=== PATIENT | female | born 1985 | race African-American/Black ===

== ENCOUNTER 2021-12-30 20:02 | Emergency (ER) | payer OTHER, SELFPAY ==
[2021-12-30 20:20] VITALS: BP 131/86; PULSE 79; RESP 14; TEMP 36.9; O2SAT 100
[2021-12-30 21:56] LABS: Appearance Urine Clear (Clear); Bilirubin Urine Negative (Negative); Blood Urine Negative (Negative); Color Urine Yellow (Yellow); Glucose Urine UA Negative (Negative); Ketones Urine Negative (Negative); Leukocyte Esterase Ur Negative LEU/UL (Negative); Nitrate Urine Negative (Negative); Protein Urine Negative (Negative); Specific Grav Ur 1.025 (1.001-1.035); Urobilinogen Urine 0.2 mg/dL (<2.0)
[2021-12-30 21:59] LABS: Mucus Urine Few /lpf; RBC Urine 0-2 /hpf (0-2); Squamous Epithelial Cell Urine Rare /hpf (Few); WBC Urine 0-3 /hpf
[2021-12-30 22:03] LABS: Add Urine Microscopic? NO
--- NOTE | 2021-12-30 22:15 | ED.GENADULT ---
HPI - General Adult General Chief complaint: Back Pain/Injury Stated complaint: lower back pain Time Seen by Provider: 12/30/21 20:50 History of Present Illness HPI narrative: 36-year-old female presenting to the emergency department for evaluation of lower back pain that started yesterday. Patient denies any specific incident of injury. Patient denies any falls. Patient states she is having bilateral lower back pain. Patient states pain is worsened with movement. Patient denies any associated numbness or weakness. Patient denies any pain with urination. Patient has no prior history of lower back surgeries. Related Data Allergies Allergy/AdvReac Type Severity Reaction Status Date / Time No Known Allergies Allergy Verified 12/30/21 21:28 Review of Systems Review of Systems: CONSTITUTIONAL: Denies fever, chills, or sweats. EYES: Denies visual changes, redness, or discharge. ENT: Denies rhinorrhea, congestion, sore throat, or otalgia. CARDIOVASCULAR: Denies chest pain, palpitations, or edema. RESPIRATORY: Denies cough or dyspnea. GASTROINTESTINAL: Denies abdominal pain, nausea, vomiting, or diarrhea. GENITOURINARY: Denies dysuria or hematuria. SKIN: Denies rash or itching. MUSCULOSKELETAL: Lower back pain worsened with movement. NEUROLOGIC: Denies headache, numbness, or weakness. PSYCHIATRIC: Denies anxiety or depression. Exam Narrative: APPEARANCE: Well appearing, no pain, no distress, well-nourished. HEAD: normocephalic, atraumatic. EYES: PERRLA/EOMI, conjunctivae clear. NECK: Supple. No adenopathy, no masses. RESPIRATORY: Airway patent, respirations nonlabored. Clear to auscultation bilaterally, no rales, rhonchi, wheezing. CARDIOVASCULAR: Regular rate and rhythm without murmurs rubs or gallops. ABDOMINAL: Soft, nontender, nondistended, normal bowel sounds MUSCULOSKELETAL: Residual low back pain with movement and with palpation. No midline step-offs or deformities. NEURO: Alert. Cranial nerves II through XII intact. Grossly intact SKIN: Warm, dry. Normal Color PSYCHIATRIC: Normal affect/mood. Course Course Emergency Course: Patient was updated on the results of her exam and plan for treatment. Patient was educated on reasons to return to the emergency department. All question concerns were addressed. Suspect muscular injury to her lower back. Vital Signs Vital signs: Vital Signs Temperature 98.4 F 12/30/21 20:20 Pulse Rate 79 12/30/21 20:20 Respiratory Rate 14 12/30/21 20:20 Blood Pressure 131/86 12/30/21 20:20 Pulse Oximetry 100 12/30/21 20:20 Oxygen Delivery Room Air 12/30/21 20:20 Temperature 98.4 F 12/30/21 20:20 Pulse Rate 66 12/30/21 22:37 Respiratory Rate 17 12/30/21 22:37 Blood Pressure 118/82 12/30/21 22:37 Pulse Oximetry 99 12/30/21 22:37 Oxygen Delivery Room Air 12/30/21 20:20 Medical Decision Making Vital Signs Vital Signs: Vital Signs Temperature 98.4 F 12/30/21 20:20 Pulse Rate 79 12/30/21 20:20 Respiratory Rate 14 12/30/21 20:20 Blood Pressure 131/86 12/30/21 20:20 Pulse Oximetry 100 12/30/21 20:20 Oxygen Delivery Room Air 12/30/21 20:20 Temperature 98.4 F 12/30/21 20:20 Pulse Rate 66 12/30/21 22:37 Respiratory Rate 17 12/30/21 22:37 Blood Pressure 118/82 12/30/21 22:37 Pulse Oximetry 99 12/30/21 22:37 Oxygen Delivery Room Air 12/30/21 20:20 Lab Data Labs: Lab Results 12/30/21 Range/Units 21:48 Urine Color Yellow (Yellow) Urine Appearance Clear (Clear) Urine pH 6.0 (5.0-9.0) Ur Specific [place] 1.025 (1.001-1.035) Urine Protein Negative (Negative) mg/dL Urine Glucose (UA) Negative (Negative) mg/dL Urine Ketones Negative (Negative) mg/dL Ur Blood (Man) Negative (Negative) Urine Nitrate Negative (Negative) Urine Bilirubin Negative (Negative) Urine Urobilinogen 0.2 (<2.0) mg/dL Leukocyte Esterase Rfl Negative (Negative) SAMANTHA/UL Urine RBC 0-2
[2021-12-30] MEDS: KETOROLAC 30 MG/ML VIAL (*BKC) IM (22:20)
[2021-12-30] MEDS: CYCLOBENZAPRINE HCL 10 MG TABLET PO (22:21)
[2021-12-30] MEDS: HYDROcodone/acetaminophen (*CRX) 5-325 MG TABLET 1 TAB PO (22:21)
[2021-12-30 22:37] VITALS: BP 118/82; PULSE 66; RESP 17; O2SAT 99
== END 2021-12-30 22:38 | disposition home or self-care (01) ==
PROVIDERS: Emergency Provider Emergency Medicine
DX: M54.50 Low back pain, unspecified (principal)
CPT/HCPCS: 81003; 81025; 96372; 99283; A9270; J1885

== ENCOUNTER 2022-02-21 01:23 | Emergency (ER) | payer OTHER, SELFPAY ==
[2022-02-21 01:32] VITALS: BP 137/80; PULSE 91; RESP 18; TEMP 37.4; O2SAT 98
--- NOTE | 2022-02-21 02:16 | ED.GENADULT ---
HPI - General Adult General Chief complaint: Upper Respiratory Infection Stated complaint: sore throat Time Seen by Provider: 02/21/22 01:55 Source: patient Mode of arrival: ambulatory Limitations: no limitations History of Present Illness HPI narrative: Presents complaints of sore throat, nasal congestion and generally not feeling well x1 hour prior to arrival. States awoke with symptoms so came to the ER for evaluation. Has not taken any medications for symptoms and unsure if has fever or not. Denies chills. Related Data Allergies Allergy/AdvReac Type Severity Reaction Status Date / Time No Known Allergies Allergy Verified 02/21/22 01:24 Review of Systems Review of Systems: CONSTITUTIONAL: Possible fever but unsure. Generalized aches. EYES: Denies visual changes, redness, or discharge. ENT: Sore throat, nasal congestion. CARDIOVASCULAR: Denies chest pain, palpitations, or edema. RESPIRATORY: Denies cough or dyspnea. GASTROINTESTINAL: Denies abdominal pain, nausea, vomiting, or diarrhea. GENITOURINARY: Denies dysuria or hematuria. SKIN: Denies rash or itching. MUSCULOSKELETAL: Denies back pain, joint pain, or myalgia. NEUROLOGIC: Denies headache, numbness, or weakness. PSYCHIATRIC: Denies anxiety or depression. Exam Narrative: GENERAL: Well-appearing, well-nourished, and in no acute distress. Appears to not feel well. HEAD: Normocephalic, atraumatic. EYES: PERRLA and EOMI. ENT: Clear nasal discharge. Mucous membranes moist. Mild posterior oropharynx erythema but no exudate. NECK: Supple. CHEST: Clear to auscultation. No respiratory distress. HEART: Regular rate and rhythm. No murmur heard. Normal peripheral pulses. ABDOMEN: Soft, nontender, nondistended, normal active bowel sounds. EXTREMITIES: Normal range of motion. No edema. SKIN: Warm, dry, no rash. NEURO: No focal deficits. Alert and oriented x3. PSYCH: Normal mood and affect. Course Vital Signs Vital signs: Vital Signs Temperature 37.4 C 02/21/22 01:32 Pulse Rate 91 02/21/22 01:32 Respiratory Rate 18 02/21/22 01:32 Blood Pressure 137/80 02/21/22 01:32 Pulse Oximetry 98 02/21/22 01:32 Oxygen Delivery Room Air 02/21/22 01:32 Temperature 37.4 C 02/21/22 01:32 Pulse Rate 91 02/21/22 01:32 Respiratory Rate 18 02/21/22 01:32 Blood Pressure 137/80 02/21/22 01:32 Pulse Oximetry 98 02/21/22 01:32 Oxygen Delivery Room Air 02/21/22 01:32 Medical Decision Making Vital Signs Vital Signs: Vital Signs Temperature 37.4 C 02/21/22 01:32 Pulse Rate 91 02/21/22 01:32 Respiratory Rate 18 02/21/22 01:32 Blood Pressure 137/80 02/21/22 01:32 Pulse Oximetry 98 02/21/22 01:32 Oxygen Delivery Room Air 02/21/22 01:32 Temperature 37.4 C 02/21/22 01:32 Pulse Rate 91 02/21/22 01:32 Respiratory Rate 18 02/21/22 01:32 Blood Pressure 137/80 02/21/22 01:32 Pulse Oximetry 98 02/21/22 01:32 Oxygen Delivery Room Air 02/21/22 01:32 Lab Data Labs: Lab Results 02/21/22 02/21/22 Range/Units 02:26 02:26 Influenza A (RT-PCR) Positive (Negative) Influenza B (RT-PCR) Negative (Negative) SARS-CoV-2 RNA (RT-PCR) Negative Grp A Beta Strep Ag Pending Strep Screen Presumptive Negative *(Reference Range: Negative)* Discharge Plan Discharge Clinical Impression: Influenza Patient Disposition: Home, Self-Care Condition: Stable Instructions: Antibiotic Form, Influenza (ED) Additional Instructions: Tylenol and or ibuprofen as directed for fever and pain. Increase fluids. Follow-up with your primary care provider for recheck if needed. Return to the ER for worsening condition or any problems. Prescriptions: No Action cyclobenzaprine 10 mg tablet 10 mg PO BID PRN (Reason: muscle spasm) Qty: 14 0RF hydrocodone-acetaminophen 5-325 mg tablet 1 tablet PO Q8H PRN (Reason: pain) Qty:
--- NOTE | 2022-02-21 03:05 | PC.NURSE ---
assumed care of this pt. report from isaak vora.
[2022-02-21 03:25] LABS: SARS-CoV-2 RNA PCR Negative
[2022-02-21 03:39] LABS: Influenza A QL RT-PCR Positive (Negative); Influenza B QL RT-PCR Negative (Negative)
== END 2022-02-21 04:06 | disposition home or self-care (01) ==
PROVIDERS: Nurse Practitioner; Emergency Provider Preventive Medicine Aerospace Medicine
DX: J10.1 Influenza due to other identified influenza virus with other respiratory manifestations (principal); Z20.822 Contact with and (suspected) exposure to COVID-19
CPT/HCPCS: 87081; 87502; 87880; 99283; C9803; U0003; U0005

== ENCOUNTER 2023-04-20 20:53 | Emergency (ER) | payer SELFPAY ==
[2023-04-20 21:13] VITALS: BP 120/75; PULSE 88; RESP 18; TEMP 36.3; O2SAT 99
--- NOTE | 2023-04-20 21:48 | ED.FEMALEGU ---
HPI - Female Genitourinary General Chief complaint: Urogenital-Female Stated complaint: possible uti Time Seen by Provider: 04/20/23 21:18 History of Present Illness HPI Narrative: 37-year-old female reports for evaluation for dysuria, urinary frequency and urgency for the past week. Patient states she is concerned she has a UTI. Denies gross hematuria, flank pain, abdominal pain, nausea vomiting, diarrhea, fever, history of kidney stones. She does endorse a concern for STDs. Denies vaginal discharge or vaginal bleeding, vaginal lesions or sores. LMP approximately 3 weeks ago. Related Data Allergies Allergy/AdvReac Type Severity Reaction Status Date / Time No Known Allergies Allergy Verified 04/20/23 20:54 Review of Systems Review of Systems: CONSTITUTIONAL: Denies fever, chills, or sweats. EYES: Denies visual changes, redness, or discharge. ENT: Denies rhinorrhea, congestion, sore throat, or otalgia. CARDIOVASCULAR: Denies chest pain, palpitations, or edema. RESPIRATORY: Denies cough or dyspnea. GASTROINTESTINAL: Denies abdominal pain, nausea, vomiting, or diarrhea. GENITOURINARY: See HPI SKIN: Denies rash or itching. MUSCULOSKELETAL: Denies back pain, joint pain, or myalgia. NEUROLOGIC: Denies headache, numbness, or weakness. PSYCHIATRIC: Denies anxiety or depression. Exam Narrative: GENERAL: Well-appearing, well-nourished, and in no acute distress. HEAD: Normocephalic, atraumatic. NECK: Supple. CHEST: Clear to auscultation. No respiratory distress. HEART: Regular rate and rhythm. No murmur heard. Normal peripheral pulses. ABDOMEN: Soft, nontender, nondistended, normal active bowel sounds. no CVA tenderness. No guarding, rebound or rigidity. EXTREMITIES: Normal range of motion. No edema. SKIN: Warm, dry, no rash. NEURO: No focal deficits. Alert and oriented x3 Course Vital Signs Vital signs: Vital Signs Temperature 97.4 F L 04/20/23 21:13 Pulse Rate 88 04/20/23 21:13 Respiratory Rate 18 04/20/23 21:13 Blood Pressure 120/75 04/20/23 21:13 Pulse Oximetry 99 04/20/23 21:13 Oxygen Delivery Room Air 04/20/23 21:13 Temperature 97.4 F L 04/20/23 21:13 Pulse Rate 88 04/20/23 21:13 Respiratory Rate 18 04/20/23 21:13 Blood Pressure 120/75 04/20/23 21:13 Pulse Oximetry 99 04/20/23 21:13 Oxygen Delivery Room Air 04/20/23 21:13 MDM - Female Genitourinary MDM Narrative Medical decision making narrative: 37-year-old female reports for evaluation for urinary frequency, urgency and dysuria for the past week. See HPI for further history. Vitals are stable and she is afebrile. She is well appearing on exam. Abdomen is soft and nontender, no flank tenderness. She does endorse a concern for STDs, however declines pelvic exam. Will send UA, UPT, and have the patient self swab for GC, Chlamydia and trich. GC, chlamydia and Trichomonas are negative. Urinalysis is concerning for urinary tract infection. Will start the patient on Keflex and azo and encourage close PCP follow-up. advised follow-up with PCP regarding hepatitis, HIV and syphilis testing if desired. Strict ED return precautions discussed. She is agreeable to plan verbalized understanding. Discharged in stable condition. Lab Data Labs: Lab Results 04/20/23 Range/Units 22:08 Urine Color Yellow (Yellow) Urine Appearance Cloudy H (Clear) Urine pH 5.5 (5.0-9.0) Ur Specific [place] 1.025 (1.001-1.035) Urine Protein Trace (Negative) mg/dL Urine Glucose (UA) Negative (Negative) mg/dL Urine Ketones Negative (Negative) mg/dL Ur Blood (Man) Trace (Negative) Urine Nitrate Negative (Negative) Urine Bilirubin Negative (Negative) Urine Urobilinogen 0.2 (<2.0) mg/dL Leukocyte Esterase Rfl 2+ H (Negative) SAMANTHA/UL Urine RBC 0-2 (0-2) /hpf Urine WBC >100 H /hpf Ur Squamous Epith Cells Many H (Few) /hpf Urine Bacteria 2+ H /hpf Urine Casts 0-2 C
[2023-04-20] MEDS: PHENAZOPYRIDINE HCL 100 MG TABLET 200 MG PO (22:18)
[2023-04-20 22:24] LABS: Appearance Urine Cloudy (Clear); Bacteria Urine 2+ /hpf; Bilirubin Urine Negative (Negative); Blood Urine Trace (Negative); Color Urine Yellow (Yellow); Glucose Urine UA Negative (Negative); Ketones Urine Negative (Negative); Leukocyte Esterase Ur 2+ LEU/UL (Negative); Nitrate Urine Negative (Negative); Non Pathogenic Casts 0-2; Protein Urine Trace mg/dL (Negative); RBC Urine 0-2 /hpf (0-2); Specific Grav Ur 1.025 (1.001-1.035); Squamous Epithelial Cell Urine Many /hpf (Few); Urobilinogen Urine 0.2 mg/dL (<2.0); WBC Urine >100 /hpf; pH Urine 5.5 (5.0-9.0)
[2023-04-20 22:26] LABS: Add Urine Microscopic? YES
[2023-04-20 23:23] LABS: Trichomonas Vag PCR NOT DETECTED (NOT DETECTE)
[2023-04-20 23:49] LABS: Chlamydia trachomatis NOT DETECTED (NOT DETECTE); Neisseria gonorrhoeae PCR NOT DETECTED (NOT DETECTE)
[2023-04-21] MEDS: CEPHALEXIN 500 MG CAPSULE PO (00:06)
[2023-04-21 00:44] VITALS: BP 134/76; PULSE 67; RESP 18; O2SAT 98
== END 2023-04-21 00:44 | disposition home or self-care (01) ==
PROVIDERS: Emergency Provider Physician Assistant
DX: N30.00 Acute cystitis without hematuria (principal)
CPT/HCPCS: 81001; 81025; 87086; 87088; 87491; 87591; 87661; 99284; A9270